=== PATIENT | male | born 1935 | race Caucasian/White ===

== ENCOUNTER 2021-03-08 08:49 | Emergency (ER) | payer OTHER, MEDICARE ==
[~2021-03-08] VITALS: Ht 172.7 cm; Wt 74.8 kg
[2021-03-08 09:32] LABS: BASOPHILS ABSOLUTE AUTO 0.02 K/mm3 (0.00-0.23); BASOPHILS PERCENT AUTO 0 % (0-2); EOSINOPHILS ABSOLUTE AUTO 0.01 K/mm3 (0.00-0.68); EOSINOPHILS PERCENT AUTO 0 % (0-6); Hematocrit 44.2 % (37.0-53.0); IMMATURE GRAN ABSOLUTE AUTO 0.03 K/mm3 (0.00-0.10); IMMATURE GRAN PERCENT AUTO 0 % (0-1); LYMPHOCYTES ABSOLUTE AUTO 0.97 K/mm3 (0.84-5.20); LYMPHOCYTES PERCENT AUTO 13 % (21-46); MONOCYTES ABSOLUTE AUTO 0.55 K/mm3 (0.16-1.47); MONOCYTES PERCENT AUTO 7 % (4-13); Mean Corpuscular HGB 33.4 pg (26.0-34.0); Mean Corpuscular HGB Conc 33.9 g/dL (31.5-36.5); Mean Corpuscular Volume 98 fL (80-100); Mean Platelet Volume 10.9 fL (9.1-12.4); NEUTROPHILS ABSOLUTE AUTO 5.99 K/mm3 (1.96-9.15); NEUTROPHILS PERCENT AUTO 79 % (41-73); Platelet Count 188 K/mm3 (150-400); RDW Coefficient Variation 14.1 % (11.7-14.2); RDW Standard Deviation 51.5 fL (35.1-46.3); Red Blood Cell Count 4.49 M/mm3 (4.30-5.90); White Blood Cell Count 7.57 K/mm3 (4.00-11.30)
[2021-03-08 09:34] LABS: Alanine Aminotransfer (ALT/SGP 26 U/L (12-78); Albumin, Blood 3.5 g/dL (3.4-5.0); Albumin/Globulin Ratio 0.9 (0.8-1.8); Alk Phos 72 U/L (50-136); Anion Gap 8 mmol/L (6-16); Aspartate Aminotrans (AST/SGOT 21 U/L (12-37); Bilirubin, Total 1.2 mg/dL (0.1-1.0); Blood Urea Nitrogen 19 mg/dL (8-24); Bun/Creatinine Ratio 19.2 (12.0-20.0); CO2, Blood 23 mmol/L (21-32); Calcium, Blood 9.1 mg/dL (8.5-10.1); Chloride, Blood 106 mmol/L (98-108); Creatinine, Blood 0.99 mg/dL (0.60-1.20); Globulin, Blood 4.1 g/dL (2.2-4.0); Glomerular Filtration Rate >60 (60-); Glucose, Blood 142 mg/dL (70-99); Potassium, Blood 4.1 mmol/L (3.5-5.5); Sodium, Blood 137 mmol/L (136-145); Total Protein, Blood 7.6 g/dL (6.4-8.2)
[2021-03-08 09:48] LABS: Source, Urine Catheter
[2021-03-08 10:37] LABS: Appearance, Urine Bloody (Clear); Bilirubin, Urine Neg (Neg); Blood, Urine 5+ (Neg); Color, Urine Red (P-Yellow); Glucose Qualitative, Urine Neg (Neg); Ketones, Urine 2+ (Neg); Leukocyte Esterase, Urine 2+ (Neg); Nitrite, Urine Neg (Neg); Protein, Urine 4+ (Neg); Urobilinogen, Urine NORM (Normal); pH, Urine 6.5 (5.0-8.0)
[2021-03-08 10:45] LABS: Red Blood Cells, Urine TNTC /hpf (0-2); Squamous Epithelial Cells Not Seen /hpf (Few); White Blood Cells, Urine 25-50 /hpf (0-5)
[2021-03-08 10:46] LABS: Bacteria Mod /hpf
[2021-03-08] MEDS ORDERED: Macrobid 100 M100 MG PO (11:30)
[2021-03-08] MEDS ORDERED: Bactrim Ds Tab1 EACH PO (11:35)
== END 2021-03-08 12:12 | disposition home or self-care (01) ==
LOC: ER 08:49
PROVIDERS: Emergency Medicine
DX: N21.0 Calculus in bladder (principal)
CPT/HCPCS: 51702; 51798; 76770; 80053; 81001; 85025; 87086; 99284-25; A9270

== ENCOUNTER 2021-03-09 02:03 | Emergency (ER) | payer MEDICARE, OTHER ==
[~2021-03-09] VITALS: Ht 175.3 cm; Wt 77.1 kg
[~2021-03-09 02:03] MED LIST: Bactrim Ds Tab1 EACH PO; Macrobid 100 M100 MG PO
== END 2021-03-09 08:44 | disposition home or self-care (01) ==
LOC: ER 02:03
DX: T83.091A Other mechanical complication of indwelling urethral catheter, initial encounter (principal); R33.9 Retention of urine, unspecified; R31.9 Hematuria, unspecified
CPT/HCPCS: 51700; 51702; 99283-25; A9270

== ENCOUNTER 2021-03-18 23:52 | Emergency (ER) | payer MEDICARE, OTHER ==
[~2021-03-18] VITALS: Ht 177.8 cm; Wt 74.8 kg
== END 2021-03-19 01:52 | disposition home or self-care (01) ==
LOC: ER 23:52
DX: T83.028A Displacement of other urinary catheter, initial encounter (principal)
CPT/HCPCS: 51702; 51798; 99283-25